=== PATIENT | female | born 1995 | race African-American/Black ===

== ENCOUNTER 2018-02-12 18:57 | Emergency (ER) | payer MEDICAID ==
[~2018-02-12] VITALS: Ht 170.2 cm; Wt 62.0 kg
[2018-02-12] MEDS ORDERED: FLUORESCEIN SODIUM 1MG/STRIP BOTHEYE ONE (20:15)
[2018-02-12] MEDS ORDERED: TETRACAINE 0.5% OPHTH DROPS 4ML BOTHEYE ONE (20:15)
[2018-02-12 22:11] VITALS: BP 112/78
== END 2018-02-12 22:14 | disposition home or self-care (01) ==
LOC: ER 19:07
DX: H10.213 Acute toxic conjunctivitis, bilateral (principal); F12.10 Cannabis abuse, uncomplicated; F15.10 Other stimulant abuse, uncomplicated
CPT/HCPCS: 99283